=== PATIENT | male | born 1940 | race Caucasian/White ===

== ENCOUNTER 2017-05-15 13:12 | Observation (INO) ==
[2017-05-15] MEDS ORDERED: ASPIRIN 325 MG TABLET PO STA (14:33)
[2017-05-15 14:40] LABS: Basophils # 0.1 10*3/uL (0.0-0.2); Eosinophils # 0.4 10*3/uL (0.0-0.87); Eosinophils % 5.7 % (0.00-10.9); Hematocrit 40.9 VOL% (42.0-52.0); Hemoglobin 14.2 GM/DL (14.0-18.0); Immature Granulocytes % 0.6 %; Immature Granulocytes Absolute 0.04 #; Lymphocytes # 0.8 10*3/uL (1.4-4.0); Lymphocytes % 11.8 % (21.2-54.2); Mean Corpuscular HGB Conc 34.7 GM/DL (32-36); Mean Corpuscular Hemoglobin 31 PG (27-34); Mean Corpuscular Volume 88.7 FL (87-102); Mean Platelet Volume 10.3 FL (9.6-12.0); Monocytes # 0.6 10*3/uL (0.11-0.8); Monocytes % 8.1 % (1.7-12.7); Neutrophils # 5.2 10*3/uL (1.4-7.4); Neutrophils % 72.8 % (38.7-73.9); Platelet Count 160 T/CUMM (130-400); Red Blood Count 4.61 MC/CUMM (3.8-5.5); Red Cell Distribution Width 13.2 % (9.3-17.3); White Blood Count 7.1 T/CUMM (4-12)
[2017-05-15 14:47] LABS: PT Patient Result 10.9 SECS; Partial Thromboplastin Time 27.2 SECS (0-40)
[2017-05-15 14:55] LABS: Albumin 3.9 G/DL (3.4-5.0); Bilirubin,Total 0.4 MG/DL (0.2-1.0); Calcium 9.1 MG/DL (8.5-10.1); Osmolality,Calculated 273.1 MOS/KG (273-304); Total Protein 6.8 G/DL (6.4-8.3)
[2017-05-15 14:57] LABS: Troponin I Only < 0.015 NG/ML (0.00-0.045)
[2017-05-15] MEDS ORDERED: ASPIRIN 325 MG TABLET ONE (17:53)
[2017-05-15 18:49] LABS: Cholesterol 192 MG/DL (50-200); Free T4 (Free Thyroxine) 0.87 NG/DL (0.76-1.46); HDL Cholesterol 44 MG/DL (40-60); Risk Ratio 4.36; T4 (Thyroxine) 6.9 UG/DL (4.7-13.3); Triglycerides 138 MG/DL (2-150); Troponin I Only < 0.015 NG/ML (0.00-0.045); VLDL CHOLESTEROL 27.6 MG/DL
[2017-05-15] MEDS: LEVOFLOXACIN INJ 500 MG in PREMIX 1 EACH IV SCH (20:24)
[2017-05-15 21:01] LABS: Barbiturates Screen,Urine Negative (Negative); Benzodiazepines Screen,Urine Negative (Negative); Cannabinoid Screen,Urine Negative (Negative); Opiate Screen,Urine Negative (Negative); Phencyclidine Screen,Urine Negative (Negative)
[2017-05-16] MEDS: LEVOTHYROXINE 88 MCG TABLET PO SCH (07:18)
[2017-05-16 07:43] LABS: Basophils # 0.1 10*3/uL (0.0-0.2); Basophils % 0.8 % (0.0-0.8); Eosinophils # 0.6 10*3/uL (0.0-0.87); Eosinophils % 10.3 % (0.00-10.9); Hematocrit 39.8 VOL% (42.0-52.0); Hemoglobin 14.3 GM/DL (14.0-18.0); Immature Granulocytes % 0.7 %; Immature Granulocytes Absolute 0.04 #; Lymphocytes # 1.4 10*3/uL (1.4-4.0); Lymphocytes % 24.3 % (21.2-54.2); Mean Corpuscular HGB Conc 35.9 GM/DL (32-36); Mean Corpuscular Hemoglobin 32 PG (27-34); Mean Corpuscular Volume 87.7 FL (87-102); Mean Platelet Volume 10.6 FL (9.6-12.0); Monocytes # 0.7 10*3/uL (0.11-0.8); Monocytes % 12.2 % (1.7-12.7); NRBC # 0.02 10*3/uL; Neutrophils # 3.1 10*3/uL (1.4-7.4); Neutrophils % 51.7 % (38.7-73.9); Platelet Count 159 T/CUMM (130-400); Red Blood Count 4.54 MC/CUMM (3.8-5.5); Red Cell Distribution Width 13.4 % (9.3-17.3); White Blood Count 5.9 T/CUMM (4-12)
[2017-05-16] MEDS: predniSONE 5 MG TABLET PO SCH (08:48)
[2017-05-16] MEDS: FLUCONAZOLE 200 MG TABLET PO SCH (08:48)
[2017-05-16] MEDS: ASPIRIN EC 81 MG TABLET PO SCH (08:49)
[2017-05-16] MEDS: NEOMYCIN/POLYMYXIN/BACITRACIN OINT 0.9 GM PACK TOP SCH (14:38)
[2017-05-16] MEDS: LEVOFLOXACIN INJ 500 MG in PREMIX 1 EACH IV SCH (18:48)
[2017-05-17] MEDS: LEVOTHYROXINE 88 MCG TABLET PO SCH (05:51)
[2017-05-17 08:47] VITALS: BP 148/73
[2017-05-17] MEDS: ASPIRIN EC 81 MG TABLET PO SCH (08:49)
[2017-05-17] MEDS: predniSONE 5 MG TABLET PO SCH (08:49)
[2017-05-17] MEDS: FLUCONAZOLE 200 MG TABLET PO SCH (08:49)
[2017-05-17] MEDS: NEOMYCIN/POLYMYXIN/BACITRACIN OINT 0.9 GM PACK TOP SCH (08:55)
[2017-05-19] MEDS ORDERED: TESTOSTERONE CYPIONATE 1,000 MG/10 ML VIAL IM SCH (09:00)
== END 2017-05-17 10:15 | disposition home or self-care (01) ==
LOC: EDBD → EDUNIT# → N.ED 13:12 → N.EDINP 13:12 → N.4E 18:30
PROVIDERS: ADMIT Internal Medicine; ATTEND Internal Medicine

== ENCOUNTER 2019-01-07 01:16 | Inpatient (IN) ==
[2019-01-07] MEDS ORDERED: SODIUM CHLORIDE 0.9% 1,000 ML IV STA ×2 (01:29→02:34)
[2019-01-07] MEDS ORDERED: CEFEPIME 2,000 MG in SODIUM CHLORIDE 0.9% 100 ML IV STA ×2 (01:33→01:36)
[2019-01-07] MEDS ORDERED: VANCOMYCIN INJ 1,000 MG in SODIUM CHLORIDE 0.9% 250 ML IV STA (01:33)
[2019-01-07 02:21] LABS: Basophils % 0.4 % (0.0-0.8); Eosinophils # 0.2 10*3/uL (0.0-0.87); Eosinophils % 2.3 % (0.00-10.9); Hematocrit 49.1 VOL% (42.0-52.0); Hemoglobin 16.9 GM/DL (14.0-18.0); Immature Granulocytes % 1.3 %; Immature Granulocytes Absolute 0.11 #; Lymphocytes # 0.4 10*3/uL (1.4-4.0); Lymphocytes % 4.6 % (21.2-54.2); Mean Corpuscular HGB Conc 34.4 GM/DL (32-36); Mean Corpuscular Volume 89.6 FL (87-102); Mean Platelet Volume 10.4 FL (9.6-12.0); Monocytes % 5.6 % (1.7-12.7); Neutrophils % 85.8 % (38.7-73.9); Platelet Count 169 T/CUMM (130-400); Red Blood Count 5.48 MC/CUMM (3.8-5.5); Red Cell Distribution Width 12.9 % (9.3-17.3); White Blood Count 8.2 T/CUMM (4-12)
[2019-01-07 02:28] LABS: Amorphous Crystals,Urine Occasional /HPF (Few); Apearance,Urine Slightly Hazy (Clear); Bilirubin,Urine Negative (Negative); Blood, Urine Small mg/dL (Negative); Glucose,Urine (UA) Negative (Negative); Hyaline Casts,Urine 82 /LPF (0-3); Ketones,Urine Negative (Negative); Mucus,Urine Many /LPF (Occasional); Nitrite,Urine Negative (Negative); Protein,Urine 30 MG/DL; RBC,Urine 16 /HPF (0-4); Squamous Epithelial Cell,Urine Occasional /HPF (0-10); Urine Color Amber (Yellow); Urine Urobilinogen < 2.0 EU/DL (0.2-1.0); WBC,Urine 7 /HPF (0-6)
[2019-01-07 02:31] LABS: Alanine Aminotransferase 37 U/L (16-61); Albumin 3.9 G/DL (3.4-5.0); Alkaline Phosphatase 90 U/L (45-117); Aspartate Amino Transferase 19 U/L (0-37); Blood Urea Nitrogen 20 MG/DL (7-18); Calcium 8.6 MG/DL (8.5-10.1); Estimated Glom Filtration Rate 90 ML/MIN; Glucose 137 MG/DL (74-106); Total Protein 7.3 G/DL (6.4-8.3)
[2019-01-07] MEDS ORDERED: ACETAMINOPHEN 500 MG TABLET PO STA (02:33)
[2019-01-07] MEDS ORDERED: KETOROLAC 30 MG/1 ML VIAL IV STA (02:33)
[2019-01-07] MEDS ORDERED: HYDROCORTISONE 100 MG VIAL IV STA (02:37)
[2019-01-07 03:23] LABS: Free T4 (Free Thyroxine) 0.94 NG/DL (0.76-1.46); Thyroid Stimulating Hormone 0.027 uIU/ml (0.358-3.74)
[2019-01-07] MEDS ORDERED: ACETAMINOPHEN 325 MG TABLET PO PRN (03:48)
[2019-01-07] MEDS ORDERED: ONDANSETRON 4 MG/2 ML VIAL IV PRN (03:48)
[2019-01-07] MEDS ORDERED: GLUCAGON 1 MG VIAL IM PRN (03:48)
[2019-01-07] MEDS ORDERED: DEXTROSE 50% 25 GM/50 ML VIAL IV PRN (03:48)
[2019-01-07 04:15] LABS: HIV Antigen/Antibody Result Nonreactive (Nonreactive)
[2019-01-07 04:16] LABS: Band Neutrophils 6 % (0-10); Lymphocytes 4 % (20-55); Segmented Neutrophils 86 % (50-85); Total Cells Counted 100
[2019-01-07 04:17] LABS: Anisocytosis 1+; Platelet Estimate Normal
[2019-01-07 05:24] LABS: Basophils % 0.4 % (0.0-0.8); Eosinophils # 0.1 10*3/uL (0.0-0.87); Eosinophils % 1.7 % (0.00-10.9); Hematocrit 44.2 VOL% (42.0-52.0); Immature Granulocytes % 0.6 %; Immature Granulocytes Absolute 0.05 #; Lymphocytes # 0.3 10*3/uL (1.4-4.0); Lymphocytes % 4.1 % (21.2-54.2); Mean Corpuscular HGB Conc 33.9 GM/DL (32-36); Mean Corpuscular Volume 90.2 FL (87-102); Mean Platelet Volume 10.5 FL (9.6-12.0); Monocytes % 6.7 % (1.7-12.7); Neutrophils % 86.5 % (38.7-73.9); Platelet Count 155 T/CUMM (130-400); White Blood Count 7.8 T/CUMM (4-12)
[2019-01-07] MEDS: PIPERACILLIN/TAZOBACTAM 3,375 MG in SODIUM CHLORIDE 0.9% 100 ML IV SCH ×3 (05:29→21:26)
[2019-01-07] MEDS: SODIUM CHLORIDE 0.9% 1,000 ML IV SCH ×3 (05:30→21:27)
[2019-01-07 05:39] LABS: Calcium 7.9 MG/DL (8.5-10.1); Osmolality,Calculated 287.3 MOS/KG (273-304)
[2019-01-07 05:45] LABS: Troponin I 0.035 NG/ML (0.00-0.045)
[2019-01-07 05:51] LABS: Band Neutrophils 9 % (0-10); Lymphocytes 4 % (20-55); Segmented Neutrophils 85 % (50-85); Total Cells Counted 100
[2019-01-07 05:52] LABS: Hypochromasia Slight; Microcytosis Slight; Platelet Estimate Adequate
[2019-01-07] MEDS: LEVOTHYROXINE 100 MCG TABLET PO SCH (06:17)
[2019-01-07] MEDS ORDERED: MAGNESIUM SULF RIDER 4 GM in PREMIX 1 EACH IV PRN (08:25)
[2019-01-07] MEDS ORDERED: MAGNESIUM SULF RIDER 2 GM in PREMIX 1 EACH IV PRN (08:25)
[2019-01-07] MEDS ORDERED: predniSONE 5 MG TABLET PO SCH (09:00)
[2019-01-07] MEDS: ENOXAPARIN 40 MG/0.4 ML SYRINGE SUBCUT SCH (09:23)
[2019-01-07] MEDS: predniSONE 20 MG TABLET PO SCH (09:23)
[2019-01-07] MEDS: PANTOPRAZOLE 40 MG TABLET PO SCH (09:23)
[2019-01-07] MEDS: POTASSIUM CHLORIDE 20 MEQ TABLET PO PRN ×2 (09:24→14:59)
[2019-01-07] MEDS: ASPIRIN EC 81 MG TABLET PO SCH (09:24)
[2019-01-07] MEDS: BRIMONIDINE/TIMOLOL OPH SOLN 5 ML BOTTLE BOTH EYES SCH ×2 (09:29→21:43)
[2019-01-07 10:39] LABS: Troponin I 0.026 NG/ML (0.00-0.045)
[2019-01-07] MEDS: INSULIN LISPRO 100 UNIT/ML SUBCUT SCH ×4 (11:53→21:27)
[2019-01-07 17:38] LABS: CKMB % 1.2 %; Troponin I 0.027 NG/ML (0.00-0.045)
[2019-01-07] MEDS: VANCOMYCIN INJ 1,250 MG in SODIUM CHLORIDE 0.9% 250 ML IV SCH (17:40)
[2019-01-07] MEDS: ATORVASTATIN 10 MG TABLET PO SCH (21:26)
[2019-01-08] MEDS: LEVOTHYROXINE 100 MCG TABLET PO SCH (06:41)
[2019-01-08] MEDS: PIPERACILLIN/TAZOBACTAM 3,375 MG in SODIUM CHLORIDE 0.9% 100 ML IV SCH ×3 (06:42→21:56)
[2019-01-08] MEDS: VANCOMYCIN INJ 1,250 MG in SODIUM CHLORIDE 0.9% 250 ML IV SCH ×2 (06:42→16:59)
[2019-01-08] MEDS: SODIUM CHLORIDE 0.9% 1,000 ML IV SCH ×2 (06:42→21:56)
[2019-01-08] MEDS: INSULIN LISPRO 100 UNIT/ML SUBCUT SCH ×4 (07:45→21:55)
[2019-01-08] MEDS ORDERED: predniSONE 10 MG TABLET ONE (09:26)
[2019-01-08] MEDS: ASPIRIN EC 81 MG TABLET PO SCH (09:43)
[2019-01-08] MEDS: PANTOPRAZOLE 40 MG TABLET PO SCH (09:45)
[2019-01-08] MEDS: ENOXAPARIN 40 MG/0.4 ML SYRINGE SUBCUT SCH (09:46)
[2019-01-08] MEDS: BRIMONIDINE/TIMOLOL OPH SOLN 5 ML BOTTLE BOTH EYES SCH ×2 (09:49→21:55)
[2019-01-08] MEDS: predniSONE 10 MG TABLET PO SCH (09:57)
[2019-01-08] MEDS: predniSONE 20 MG TABLET PO SCH (10:08)
[2019-01-08 16:38] LABS: Basophils % 0.1 % (0.0-0.8); Eosinophils % 0.1 % (0.00-10.9); Hematocrit 39.3 VOL% (42.0-52.0); Hemoglobin 13.3 GM/DL (14.0-18.0); Immature Granulocytes % 0.6 %; Immature Granulocytes Absolute 0.05 #; Lymphocytes # 0.5 10*3/uL (1.4-4.0); Lymphocytes % 6.1 % (21.2-54.2); Mean Corpuscular HGB Conc 33.8 GM/DL (32-36); Mean Corpuscular Volume 91.2 FL (87-102); Mean Platelet Volume 10.7 FL (9.6-12.0); Monocytes % 3.1 % (1.7-12.7); Platelet Count 157 T/CUMM (130-400); Red Blood Count 4.31 MC/CUMM (3.8-5.5); Red Cell Distribution Width 13.5 % (9.3-17.3); White Blood Count 8.6 T/CUMM (4-12)
[2019-01-08 16:56] LABS: Calcium 8.2 MG/DL (8.5-10.1); Osmolality,Calculated 277.7 MOS/KG (273-304)
[2019-01-08] MEDS: ATORVASTATIN 10 MG TABLET PO SCH (21:55)
[2019-01-09] MEDS: SODIUM CHLORIDE 0.9% 1,000 ML IV SCH ×3 (04:26→20:51)
[2019-01-09] MEDS: VANCOMYCIN INJ 1,250 MG in SODIUM CHLORIDE 0.9% 250 ML IV SCH (04:26)
[2019-01-09 05:18] LABS: Basophils % 0.1 % (0.0-0.8); Eosinophils % 0.5 % (0.00-10.9); Hematocrit 35.8 VOL% (42.0-52.0); Immature Granulocytes % 0.5 %; Immature Granulocytes Absolute 0.04 #; Lymphocytes % 12.3 % (21.2-54.2); Mean Corpuscular HGB Conc 33.5 GM/DL (32-36); Mean Corpuscular Volume 91.6 FL (87-102); Mean Platelet Volume 10.6 FL (9.6-12.0); Monocytes % 10.7 % (1.7-12.7); Neutrophils % 75.9 % (38.7-73.9); Platelet Count 143 T/CUMM (130-400); Red Blood Count 3.91 MC/CUMM (3.8-5.5); Red Cell Distribution Width 13.5 % (9.3-17.3); White Blood Count 8.1 T/CUMM (4-12)
[2019-01-09 05:45] LABS: Calcium 8.2 MG/DL (8.5-10.1); Osmolality,Calculated 282.1 MOS/KG (273-304)
[2019-01-09] MEDS: PIPERACILLIN/TAZOBACTAM 3,375 MG in SODIUM CHLORIDE 0.9% 100 ML IV SCH ×2 (06:09→12:20)
[2019-01-09] MEDS: LEVOTHYROXINE 100 MCG TABLET PO SCH (06:09)
[2019-01-09] MEDS: INSULIN LISPRO 100 UNIT/ML SUBCUT SCH ×4 (07:54→20:58)
[2019-01-09] MEDS: predniSONE 10 MG TABLET PO SCH (08:28)
[2019-01-09] MEDS: PANTOPRAZOLE 40 MG TABLET PO SCH (08:28)
[2019-01-09] MEDS: ENOXAPARIN 40 MG/0.4 ML SYRINGE SUBCUT SCH (08:28)
[2019-01-09] MEDS: ASPIRIN EC 81 MG TABLET PO SCH (08:28)
[2019-01-09] MEDS: BRIMONIDINE/TIMOLOL OPH SOLN 5 ML BOTTLE BOTH EYES SCH ×2 (08:30→20:51)
[2019-01-09] MEDS: cefTRIAXone 2,000 MG in SYRINGE 1 EACH IV SCH (14:53)
[2019-01-09] MEDS: ATORVASTATIN 10 MG TABLET PO SCH (20:51)
[2019-01-10] MEDS: SODIUM CHLORIDE 0.9% 1,000 ML IV SCH ×2 (03:52→13:23)
[2019-01-10 05:12] LABS: Basophils % 0.3 % (0.0-0.8); Eosinophils # 0.2 10*3/uL (0.0-0.87); Eosinophils % 2.1 % (0.00-10.9); Hematocrit 36.5 VOL% (42.0-52.0); Hemoglobin 12.1 GM/DL (14.0-18.0); Immature Granulocytes % 0.5 %; Immature Granulocytes Absolute 0.04 #; Lymphocytes # 1.4 10*3/uL (1.4-4.0); Lymphocytes % 18.5 % (21.2-54.2); Mean Corpuscular HGB Conc 33.2 GM/DL (32-36); Mean Corpuscular Volume 91.7 FL (87-102); Mean Platelet Volume 11.3 FL (9.6-12.0); Monocytes % 11.3 % (1.7-12.7); Neutrophils % 67.3 % (38.7-73.9); Platelet Count 148 T/CUMM (130-400); Red Blood Count 3.98 MC/CUMM (3.8-5.5); Red Cell Distribution Width 13.7 % (9.3-17.3); White Blood Count 7.7 T/CUMM (4-12)
[2019-01-10] MEDS: LEVOTHYROXINE 100 MCG TABLET PO SCH (05:25)
[2019-01-10] MEDS: INSULIN LISPRO 100 UNIT/ML SUBCUT SCH ×4 (08:10→22:31)
[2019-01-10] MEDS: ENOXAPARIN 40 MG/0.4 ML SYRINGE SUBCUT SCH (08:52)
[2019-01-10] MEDS: ASPIRIN EC 81 MG TABLET PO SCH (08:52)
[2019-01-10] MEDS: PANTOPRAZOLE 40 MG TABLET PO SCH (08:52)
[2019-01-10] MEDS: predniSONE 10 MG TABLET PO SCH (08:52)
[2019-01-10] MEDS: BRIMONIDINE/TIMOLOL OPH SOLN 5 ML BOTTLE BOTH EYES SCH ×2 (08:52→20:55)
[2019-01-10] MEDS: cefTRIAXone 2,000 MG in SYRINGE 1 EACH IV SCH (13:30)
[2019-01-10] MEDS: ATORVASTATIN 10 MG TABLET PO SCH (20:55)
[2019-01-11] MEDS: SODIUM CHLORIDE 0.9% 1,000 ML IV SCH ×2 (01:12→12:32)
[2019-01-11 04:48] LABS: Basophils % 0.4 % (0.0-0.8); Eosinophils # 0.2 10*3/uL (0.0-0.87); Eosinophils % 2.1 % (0.00-10.9); Hematocrit 38.2 VOL% (42.0-52.0); Hemoglobin 12.8 GM/DL (14.0-18.0); Immature Granulocytes % 1.7 %; Immature Granulocytes Absolute 0.14 #; Lymphocytes # 1.9 10*3/uL (1.4-4.0); Lymphocytes % 22.6 % (21.2-54.2); Mean Corpuscular HGB Conc 33.5 GM/DL (32-36); Mean Corpuscular Volume 90.5 FL (87-102); Mean Platelet Volume 11.1 FL (9.6-12.0); Monocytes % 12.3 % (1.7-12.7); Neutrophils % 60.9 % (38.7-73.9); Platelet Count 159 T/CUMM (130-400); Red Blood Count 4.22 MC/CUMM (3.8-5.5); Red Cell Distribution Width 13.6 % (9.3-17.3); White Blood Count 8.2 T/CUMM (4-12)
[2019-01-11 05:06] LABS: Osmolality,Calculated 273.8 MOS/KG (273-304)
[2019-01-11] MEDS: LEVOTHYROXINE 100 MCG TABLET PO SCH (06:28)
[2019-01-11] MEDS ORDERED: TESTOSTERONE CYPIONATE 100 MG/ML IM SCH (08:30)
[2019-01-11] MEDS: ENOXAPARIN 40 MG/0.4 ML SYRINGE SUBCUT SCH (09:11)
[2019-01-11] MEDS: BRIMONIDINE/TIMOLOL OPH SOLN 5 ML BOTTLE BOTH EYES SCH (09:11)
[2019-01-11] MEDS: predniSONE 10 MG TABLET PO SCH (09:12)
[2019-01-11] MEDS: PANTOPRAZOLE 40 MG TABLET PO SCH (09:12)
[2019-01-11] MEDS: ASPIRIN EC 81 MG TABLET PO SCH (09:12)
[2019-01-11] MEDS: INSULIN LISPRO 100 UNIT/ML SUBCUT SCH ×2 (09:19→12:32)
[2019-01-11 12:03] VITALS: BP 141/81
== END 2019-01-11 12:41 | disposition home or self-care (01) | DRG 392 ==
LOC: EDUNIT# → EDBD → N.ED 01:16 → N.EDINP 03:48 → SUATTDRO 03:48 → N.5E 04:27
PROVIDERS: ADMIT Internal Medicine; ATTEND Internal Medicine

== ENCOUNTER 2020-04-24 09:54 | Inpatient (IN) ==
[2020-04-24] MEDS ORDERED: SODIUM CHLORIDE 0.9% 1,000 ML IV STA (10:24)
[2020-04-24 10:45] LABS: Basophils % 0.8 % (0.0-0.8); Eosinophils # 0.3 10*3/uL (0.0-0.87); Eosinophils % 6.2 % (0.00-10.9); Hematocrit 37.5 VOL% (42.0-52.0); Immature Granulocytes % 0.8 %; Immature Granulocytes Absolute 0.04 #; Lymphocytes # 0.9 10*3/uL (1.4-4.0); Lymphocytes % 19.3 % (21.2-54.2); Mean Corpuscular HGB Conc 34.7 GM/DL (32-36); Mean Corpuscular Volume 84.7 FL (87-102); Mean Platelet Volume 9.4 FL (9.6-12.0); Monocytes % 13.3 % (1.7-12.7); Neutrophils % 59.6 % (38.7-73.9); Platelet Count 157 T/CUMM (130-400); Red Blood Count 4.43 MC/CUMM (3.8-5.5); Red Cell Distribution Width 13.2 % (9.3-17.3); White Blood Count 4.8 T/CUMM (4-12)
[2020-04-24 10:54] LABS: INR 1.1; PT Patient Result 11.5 SECS (9.8-11.9)
[2020-04-24 11:16] LABS: Alanine Aminotransferase 44 U/L (16-61); Alkaline Phosphatase 88 U/L (45-117); Aspartate Amino Transferase 15 U/L (0-37); Blood Urea Nitrogen 7 MG/DL (7-18); Calcium 7.9 MG/DL (8.5-10.1); Carbon Dioxide 24 MMOL/L (21-32); Estimated Glom Filtration Rate 139 ML/MIN; Glucose 109 MG/DL (74-106); Osmolality,Calculated 238.3 MOS/KG (273-304); Potassium 3.3 MMOL/L (3.5-5.1); Total Protein 5.8 G/DL (6.4-8.3); Troponin I < 0.015 NG/ML (0.00-0.045)
[2020-04-24 11:20] LABS: Sodium 119 MMOL/L (136-145)
[2020-04-24 11:26] LABS: Free T4 (Free Thyroxine) 1.05 NG/DL (0.76-1.46); Thyroid Stimulating Hormone 0.026 uIU/ml (0.358-3.74)
[2020-04-24] MEDS ORDERED: HYDROCORTISONE 100 MG VIAL IV STA (11:36)
[2020-04-24 11:44] LABS: Amorphous Crystals,Urine Occasional /HPF (Few); Bilirubin,Urine Negative (Negative); Blood, Urine Negative (Negative); Glucose,Urine (UA) Negative (Negative); Ketones,Urine Negative (Negative); Mucus,Urine Occasional /LPF (Occasional); Nitrite,Urine Negative (Negative); Protein,Urine Negative; RBC,Urine 2 /HPF (0-4); Urine Appearance CLEAR (Clear); Urine Color Yellow (Yellow); Urine Specific Gravity 1.009 (1.001-1.035); Urine Urobilinogen < 2.0 EU/DL (0.2-1.0); WBC,Urine <1 /HPF (0-6)
[2020-04-24] MEDS ORDERED: DEXTROSE 50% 25 GM/50 ML VIAL IV PRN (12:53)
[2020-04-24] MEDS ORDERED: GLUCAGON 1 MG VIAL IM PRN (12:53)
[2020-04-24] MEDS ORDERED: ACETAMINOPHEN 325 MG TABLET PO PRN (12:53)
[2020-04-24] MEDS ORDERED: POTASSIUM CHLORIDE 20 MEQ TABLET PO PRN (12:54)
[2020-04-24] MEDS: SODIUM CHLORIDE 0.9% 1,000 ML IV SCH (16:22)
[2020-04-24 16:29] LABS: Calcium 8.5 MG/DL (8.5-10.1); Osmolality,Calculated 248.6 MOS/KG (273-304); Potassium 3.9 MMOL/L (3.5-5.1)
[2020-04-24] MEDS ORDERED: DOCUSATE SODIUM 100 MG CAPSULE PO PRN (18:02)
[2020-04-24] MEDS: TAMSULOSIN 0.4 MG CAPSULE PO SCH (20:42)
[2020-04-24] MEDS: ATORVASTATIN 10 MG TABLET PO SCH (20:42)
[2020-04-24] MEDS ORDERED: HYDROCORTISONE 10 MG TABLET PO SCH (21:00)
[2020-04-25] MEDS: SODIUM CHLORIDE 0.9% 1,000 ML IV SCH ×2 (00:51→08:04)
[2020-04-25] MEDS: LEVOTHYROXINE 100 MCG TABLET PO SCH (05:44)
[2020-04-25 07:02] LABS: Basophils % 0.8 % (0.0-0.8); Eosinophils # 0.1 10*3/uL (0.0-0.87); Eosinophils % 1.2 % (0.00-10.9); Hematocrit 40.8 VOL% (42.0-52.0); Hemoglobin 13.5 GM/DL (14.0-18.0); Immature Granulocytes % 0.6 %; Immature Granulocytes Absolute 0.03 #; Lymphocytes % 20.2 % (21.2-54.2); Mean Corpuscular HGB Conc 33.1 GM/DL (32-36); Mean Corpuscular Volume 86.4 FL (87-102); Mean Platelet Volume 10.4 FL (9.6-12.0); Monocytes % 13.9 % (1.7-12.7); Neutrophils % 63.3 % (38.7-73.9); Platelet Count 196 T/CUMM (130-400); Red Blood Count 4.72 MC/CUMM (3.8-5.5); Red Cell Distribution Width 13.6 % (9.3-17.3)
[2020-04-25] MEDS: ASPIRIN EC 81 MG TABLET PO SCH (08:02)
[2020-04-25] MEDS: TAMSULOSIN 0.4 MG CAPSULE PO SCH ×2 (08:02→20:43)
[2020-04-25 08:15] LABS: Calcium 8.3 MG/DL (8.5-10.1); Osmolality,Calculated 262.5 MOS/KG (273-304); Potassium 3.5 MMOL/L (3.5-5.1)
[2020-04-25] MEDS ORDERED: HYDROCORTISONE 10 MG TABLET PO SCH (09:00)
[2020-04-25] MEDS ORDERED: DEXTROSE 5% 1,000 ML IV SCH (09:30)
[2020-04-25 10:36] LABS: Risk Ratio 2.08
[2020-04-25] MEDS: HYDROCORTISONE 100 MG VIAL IV SCH ×3 (10:55→23:35)
[2020-04-25] MEDS ORDERED: TESTOSTERONE CYPIONATE 1,000 MG/10 ML VIAL IM SCH (11:00)
[2020-04-25] MEDS: DOCUSATE SODIUM 100 MG CAPSULE PO SCH (11:01)
[2020-04-25 13:36] LABS: Calcium 7.9 MG/DL (8.5-10.1); Osmolality,Calculated 259.1 MOS/KG (273-304); Potassium 3.7 MMOL/L (3.5-5.1)
[2020-04-25] MEDS: ATORVASTATIN 10 MG TABLET PO SCH (20:43)
[2020-04-25] MEDS: BRIMONIDINE/TIMOLOL OPH SOLN 5 ML BOTTLE BOTH EYES SCH (20:43)
[2020-04-26] MEDS: HYDROCORTISONE 100 MG VIAL IV SCH ×2 (04:15→09:32)
[2020-04-26] MEDS: LEVOTHYROXINE 100 MCG TABLET PO SCH (06:04)
[2020-04-26 06:34] LABS: Basophils % 0.4 % (0.0-0.8); Eosinophils % 0.2 % (0.00-10.9); Hematocrit 38.5 VOL% (42.0-52.0); Hemoglobin 13.4 GM/DL (14.0-18.0); Immature Granulocytes % 0.8 %; Immature Granulocytes Absolute 0.04 #; Lymphocytes # 0.6 10*3/uL (1.4-4.0); Lymphocytes % 11.2 % (21.2-54.2); Mean Corpuscular HGB Conc 34.8 GM/DL (32-36); Mean Corpuscular Volume 84.6 FL (87-102); Mean Platelet Volume 10.2 FL (9.6-12.0); Monocytes % 6.6 % (1.7-12.7); Neutrophils % 80.8 % (38.7-73.9); Platelet Count 188 T/CUMM (130-400); Red Blood Count 4.55 MC/CUMM (3.8-5.5); Red Cell Distribution Width 13.9 % (9.3-17.3); White Blood Count 5.2 T/CUMM (4-12)
[2020-04-26 06:55] LABS: Calcium 8.3 MG/DL (8.5-10.1); Osmolality,Calculated 264.4 MOS/KG (273-304); Potassium 3.6 MMOL/L (3.5-5.1)
[2020-04-26] MEDS: DOCUSATE SODIUM 100 MG CAPSULE PO SCH (09:26)
[2020-04-26] MEDS: BRIMONIDINE/TIMOLOL OPH SOLN 5 ML BOTTLE BOTH EYES SCH ×2 (09:26→20:17)
[2020-04-26] MEDS: ASPIRIN EC 81 MG TABLET PO SCH (09:26)
[2020-04-26] MEDS: TAMSULOSIN 0.4 MG CAPSULE PO SCH ×2 (09:27→20:16)
[2020-04-26] MEDS: ATORVASTATIN 10 MG TABLET PO SCH (20:16)
[2020-04-26] MEDS ORDERED: HYDROCORTISONE 10 MG TABLET PO SCH (21:00)
[2020-04-27 05:28] LABS: Basophils # 0.1 10*3/uL (0.0-0.2); Basophils % 0.9 % (0.0-0.8); Eosinophils # 0.2 10*3/uL (0.0-0.87); Eosinophils % 4.2 % (0.00-10.9); Hematocrit 36.1 VOL% (42.0-52.0); Hemoglobin 12.4 GM/DL (14.0-18.0); Immature Granulocytes % 0.2 %; Immature Granulocytes Absolute 0.01 #; Lymphocytes # 1.4 10*3/uL (1.4-4.0); Lymphocytes % 24.5 % (21.2-54.2); Mean Corpuscular HGB Conc 34.3 GM/DL (32-36); Mean Corpuscular Volume 86.4 FL (87-102); Mean Platelet Volume 9.8 FL (9.6-12.0); Monocytes % 10.9 % (1.7-12.7); Neutrophils % 59.3 % (38.7-73.9); Platelet Count 173 T/CUMM (130-400); Red Blood Count 4.18 MC/CUMM (3.8-5.5); Red Cell Distribution Width 14.2 % (9.3-17.3); White Blood Count 5.5 T/CUMM (4-12)
[2020-04-27 06:00] LABS: Calcium 8.3 MG/DL (8.5-10.1); Osmolality,Calculated 266.2 MOS/KG (273-304); Potassium 3.2 MMOL/L (3.5-5.1)
[2020-04-27] MEDS: LEVOTHYROXINE 100 MCG TABLET PO SCH (06:22)
[2020-04-27] MEDS ORDERED: HYDROCORTISONE 10 MG TABLET PO SCH (09:00)
[2020-04-27] MEDS: BRIMONIDINE/TIMOLOL OPH SOLN 5 ML BOTTLE BOTH EYES SCH (09:18)
[2020-04-27] MEDS: TAMSULOSIN 0.4 MG CAPSULE PO SCH (09:18)
[2020-04-27] MEDS: DOCUSATE SODIUM 100 MG CAPSULE PO SCH (09:18)
[2020-04-27] MEDS: ASPIRIN EC 81 MG TABLET PO SCH (09:18)
[2020-04-27 09:24] VITALS: BP 117/54
[2020-04-28 11:07] LABS: Osmolality, Serum 263 mOsm/kg (275 - 295)
[2020-04-28 11:31] LABS: Osmolality, Urine 331 mOsm/kg (150 - 1150)
== END 2020-04-27 11:19 | disposition home health service (06) | DRG 641 ==
LOC: EDBD → EDUNIT# → N.ED 09:54 → N.EDINP 12:50 → SUATTDRO 12:50 → N.EDINP 15:35 → N.5E 15:51
PROVIDERS: ADMIT Internal Medicine; ATTEND Internal Medicine Geriatric Medicine